=== PATIENT | female | born 1980 | race Caucasian/White ===

== ENCOUNTER 2016-06-28 18:36 | Emergency (ER) | payer OTHER ==
[2016-06-28 19:42] LABS: Hematocrit 40 % (35-47); Hemoglobin 13.3 g/dl (12.0-16.0); Mean Corpuscular HGB Conc 33 g/dl (31-36); Mean Corpuscular Hemoglobin 30 pg (27-31); Mean Corpuscular Volume 90 fL (80-97); Mean Platelet Volume 8 um3 (7.4-10.4); Red Blood Count 4.47 10^6/ul (4.0-5.4); Red Cell Distribution Width 13 % (10.5-15); White Blood Count 12.7 10^3/ul (3.5-10.8)
[2016-06-28 19:52] LABS: Urine Bacteria Absent (Absent); Urine Bilirubin Negative (Negative); Urine Glucose Negative (Negative); Urine Nitrite Negative (Negative)
[2016-06-28 20:01] LABS: ALT 10 U/L (7-52); AST 11 U/L (13-39); Albumin 3.8 g/dL (3.2-5.2); Alkaline Phosphatase 39 U/L (34-104); Anion Gap 5 mmol/L (2-11); BUN/Creatinine Ratio 18.1 (8-20); Blood Urea Nitrogen 15 mg/dL (6-24); CO2 Carbon Dioxide 26 mmol/L (22-32); Calcium 9.1 mg/dL (8.6-10.3); Chloride 107 mmol/L (101-111); EGFR African American 99.5 (>60); EGFR Non-African American 77.4 (>60); Globulin 2.9 g/dL (2-4); Glucose 94 mg/dL (70-100); Lipase 24 U/L (11.0-82.0); Magnesium 2.1 mg/dL (1.9-2.7); Potassium 3.6 mmol/L (3.5-5.0); Sodium 138 mmol/L (133-145); Total Protein 6.7 g/dL (6.4-8.9)
[2016-06-28] MEDS ORDERED: NS 0.9% 1000 ML* 1,000 ML IV ONE (20:07)
[2016-06-28] MEDS ORDERED: Ketorolac INJ* 30 MG/ML 1 ML VIAL IV PUSH ONE (20:07)
--- NOTE | 2016-06-28 20:18 | ED ---
Oscar Santos Michael, scribed for Josie De La Rosa MD on 06/28/16 at 1916 . Abdominal Pain/Female - HPI Summary HPI Summary: 36 y/o female comes to the ED presenting with intermittent episodes of sharp LLQ abd pain that started a week and a half ago. The pt reports that nothing aggravates or alleviates the abd pain. She also c/o nausea, fatigue, chills, sinus congestion, and bilateral breast tenderness. The breast tenderness is aggravated with movement. The pt denies dysuria, hematuria, vomiting, fever, rashes, and nipple discharge. No vaginal d/c, odor. No obrien, vision changes. no h /o similar. Pt has taken tylenol wiht some improvement- last dose yesterday. no analgesia today. Her LNMP started on 06/09/16 and stopped on 06/12/16. The PMHx is significant for DVT and insignificant for ovarian cysts. She smokes one pack of cigarettes per day and drinks alcohol once per month. - History of Current Complaint Chief Complaint: EDAbdPain Stated Complaint: ABD & BREAST PAIN/GEN ILLNESS Time Seen by Provider: 06/28/16 19:13 Hx Obtained From: Patient, Medical Records Hx Last Menstrual Period: 09/28/15 Onset/Duration: Gradual Onset, Lasting Weeks, Still Present Timing: Intermittent Episode Lasting Severity Initially: Moderate Severity Currently: Moderate Pain Intensity: 3 Pain Scale Used: 0-10 Numeric Location: Diffuse Aggravating Factor(s): Nothing Alleviating Factor(s): Nothing Associated Signs and Symptoms: Positive: Negative - dysuria, hematuria, vomiting , fever, rashes, and nipple discharge, Nausea, Other: - abd pain, fatigue, chills, sinus congestion, and breast tenderness Allergies/Adverse Reactions: Allergies Allergy/AdvReac Type Severity Reaction Status Date / Time No Known Allergies Allergy Verified 06/28/16 18:56 PMH/Surg Hx/FS Hx/Imm Hx Previously Healthy: Yes Endocrine/Hematology History: Reports: Other Endocrine/Hematological Disorders - protein C def Denies: Hx Anticoagulant Therapy Cardiovascular History: Reports: Hx Deep Vein Thrombosis - Rt popliteal space Musculoskeletal History: Reports: Other Musculoskeletal History - Rt calf tear in 2013 Neurological History: Denies: Hx Peripheral Neuropathy, Hx Spinal Cord Injury - Surgical History Surgery Procedure, Year, and Place: tubal ligation january 2009 Infectious Disease History: No Infectious Disease History: Denies: History Other Infectious Disease, Traveled Outside the [place] in Last 30 Days - Family History Known Family History: Positive: Other - migraines - Social History Occupation: Employed Full-time Lives: With Family Alcohol Use: Occasionally Substance Use Type: Reports: None Hx Tobacco Use: Yes Smoking Status (MU): Heavy Every Day Tobacco Smoker Type: Cigarettes Amount Used/How Often: half pack per day Review of Systems Positive: Chills, Fatigue. Negative: Fever Eyes: Negative ENT: Negative Positive: Other - sinus congestion Cardiovascular: Negative Respiratory: Negative Positive: Abdominal Pain, Nausea. Negative: Vomiting Genitourinary: Negative Negative: burning, hematuria Positive: Other - breast tenderness Negative: Rash Neurological: Negative Negative: Weakness, Numbness Psychological: Normal All Other Systems Reviewed And Are Negative: Yes Physical Exam Triage Information Reviewed: Yes Vital Signs On Initial Exam: Initial Vitals Temp Pulse Resp BP Pulse Ox 98.5 F 78 15 127/70 100 06/28/16 18:52 06/28/16 18:52 06/28/16 18:52 06/28/16 18:52 06/28/16 18:52 Vital Signs Reviewed: Yes Appearance: Positive: Well-Appearing, No Pain Distress, Well-Nourished Skin: Positive: Warm, Skin Color Reflects Adequate Perfusion, Dry Eyes: Positive: Normal, EOMI ENT: Positive: Normal ENT inspection Neck: Positive: Supple, Nontender Respiratory/Lung Sounds: Positive: Clear to Auscultation, Breath Sounds Present Cardiovascular: Positive: Normal, RRR. Negative: Murmur Abdomen Description: Positive: No Organomegaly, Soft. Negative: Nontender - mild discomfort LUQ, LLQ no guarding, no rebound +BS soft Diagnostics - Vital Signs Vital Signs Temp Pulse Resp BP Pulse Ox 06/28/16 18:52 98.5 F 78 15 127/70 100 - Laboratory Lab Results: Lab Results 06/28/16 06/28/16 06/28/16 Range/Units 19:30 19:31 19:31 WBC 12.7 H (3.5-10.8) 10^3/ul RBC 4.47 (4.0-5.4) 10^6/ul Hgb 13.3 (12.0-16.0) g/dl Hct 40 (35-47) % MCV 90 (80-97) fL MCH 30 (27-31) pg MCHC 33 (31-36) g/dl RDW 13 (10.5-15) % Plt Count 270 (150-450) 10^3/ul MPV 8 (7.4-10.4) um3 Neut % (Auto) 61.2 (38-83) % Lymph % (Auto) 29.8 (25-47) % [place] % (Auto) 6.5 (1-9) % Eos % (Auto) 1.0 (0-6) % Baso % (Auto) 1.5 (0-2) % Absolute Neuts (auto) 7.8 H (1.5-7.7) 10^3/ul Absolute Lymphs (auto) 3.8 (1.0-4.8) 10^3/ul Absolute Monos (auto) 0.8 (0-0.8) 10^3/ul Absolute Eos (auto) 0.1 (0-0.6) 10^3/ul Absolute Basos (auto) 0.2 (0-0.2) 10^3/ul Absolute Nucleated RBC 0 10^3/ul Nucleated RBC % 0 Sodium 138 (133-145) mmol/L Potassium 3.6 (3.5-5.0) mmol/L Chloride 107 (101-111) mmol/L Carbon Dioxide 26 (22-32) mmol/L Anion Gap 5 (2-11) mmol/L BUN 15 (6-24) mg/dL Creatinine 0.83 (0.51-0.95) mg/dL Est GFR ( Amer) 99.5 (>60) Est GFR (Non-Af Amer) 77.4 (>60) BUN/Creatinine Ratio 18.1 (8-20) Glucose 94 (70-100) mg/dL Calcium 9.1 (8.6-10.3) mg/dL Magnesium 2.1 (1.9-2.7) mg/dL Total Bilirubin 0.30 (0.2-1.0) mg/dL AST 11 L (13-39) U/L ALT 10 (7-52) U/L Alkaline Phosphatase 39 (34-104) U/L Total Protein 6.7 (6.4-8.9) g/dL Albumin 3.8 (3.2-5.2) g/dL Globulin 2.9 (2-4) g/dL Albumin/Globulin Ratio 1.3 (1-3) Lipase 24 (11.0-82.0) U/L Beta HCG, Quant < 0.60 mIU/mL Urine Color Yellow Urine Appearance Cloudy Urine pH 6.0 (5-9) Ur Specific [place] 1.019 (1.010-1.030) Urine Protein Negative (Negative) Urine Ketones Negative (Negative) Urine Blood 2+ H (Negative) Urine Nitrate Negative (Negative) Urine Bilirubin Negative (Negative) Urine Urobilinogen Negative (Negative) Ur Leukocyte Esterase Negative (Negative) Urine WBC (Auto) Absent (Absent) Urine RBC (Auto) 2+(6-10/hpf) H (Absent) Ur Squamous Epith Cells Present H (Absent) Urine Bacteria Absent (Absent) Urine Glucose Negative (Negative) Result Diagrams: 06/28/16 19:31 06/28/16 19:31 Lab Statement: Any lab studies that have been ordered have been reviewed, and results considered in the medical decision making process. - CT CT ABD CT Interpretation: No Acute Changes CT Interpretation Completed By: Radiologist Abdominal Pain Fem Course/Dx - Diagnoses Provider Diagnoses: Abdominal pain Discharge - Discharge Plan Condition: Stable Disposition: HOME Patient Education Materials: Abdominal Pain (ED), Musculoskeletal Pain (ED) Referrals: Edgardo Stoner MD [Primary Care Provider] - [facility] [Outside] Additional Instructions: - Stay well hydrated. Drink plenty of non-alcoholic, non-caffinated beverages - Eat and drink regular, healthy meals -Work to decrease decreased cigarette smoking - Get plenty of restful sleep -Contact your automobile wrecker doctor to schedule a follow-up appointment. contact the physician referral line to establish with a new primary care doctor. Contact your doctor or return with questions or concerns The documentation as recorded by the Oscar jiménez Michael accurately reflects the service I personally performed and the decisions made by me, Josie De La Rosa MD.
--- NOTE | 2016-06-28 20:49 | RAD ---
INDICATION: Flank pain and hematuria COMPARISON: May 28, 2015 TECHNIQUE: Noncontrast axial source images were acquired from the level hemidiaphragms to the symphysis pubis as part of CT imaging for renal stone. Lung bases: The lung bases are clear. Liver: The liver is normal in size. Noncontrast imaging shows no evidence of a hepatic mass or ductal dilatation. Gallbladder: There are no calcified gallstones. There is no evidence of wall thickening or pericholecystic fluid.. Spleen: The spleen is normal in size. The noncontrast CT appearance is normal. Pancreas: Noncontrast imaging shows no pancreatic mass or ductal dilitation. Adrenal glands: No masses are identified. Kidneys/Bladder: There is no evidence of nephrolithiasis or CT evidence of hydronephrosis. Noncontrast imaging shows no evidence of a renal mass. The bladder is unremarkable.. Adenopathy: There is no evidence of intraperitoneal or retroperitoneal adenopathy. Evaluation is limited without oral contrast. Fluid collections: There are no free or localized fluid collections. Vessels: The aorta and iliac vessels are normal in caliber. There are no significant atherosclerotic changes. The IVC appears normal Pelvic organs: The uterus and adnexa appear normal GI tract: Evaluation of the bowel is limited without oral contrast. The stomach, small bowel, and lower GI tract appear grossly normal. There are no obstructive findings. The appendix is visualized and appears normal. Soft tissues: No soft tissue abnormalities of the extraperitoneal abdomen or pelvis are identified. Osseous structures: There are no acute osseous findings. IMPRESSION: NO CT EVIDENCE OF UROLITHIASIS. NO MASS OR INFLAMMATORY CHANGE
[2016-06-28 22:05] VITALS: BP 115/55
== END 2016-06-28 22:04 | disposition home or self-care (01) ==
LOC: ED 18:36
DX: R10.32 Left lower quadrant pain (principal); N64.4 Mastodynia; R11.0 Nausea; R53.83 Other fatigue
CPT/HCPCS: 36415; 74176; 80053; 81003; 81015; 83690; 83735; 84702; 85025; 96374; 99282; J1885

== ENCOUNTER 2016-10-13 14:59 | Emergency (ER) | payer OTHER ==
[2016-10-13 15:20] VITALS: BP 115/73
[2016-10-13] MEDS ORDERED: Acetaminophen TAB* 325 MG PO ONE (16:38)
--- NOTE | 2016-10-13 17:08 | RAD ---
CLINICAL HISTORY: Left flank pain, hematuria COMPARISON: June 28, 2016 TECHNIQUE: Multiple contiguous axial CT scans were obtained of the abdomen and pelvis, without intravenous contrast enhancement. Coronal and sagittal multiplanar reformations are submitted for review. Oral contrast was not administered. FINDINGS: The study is limited by the lack of intravenous contrast. This limits evaluation of the solid organs and vasculature. LUNG BASES: The lung bases are clear. LIVER: The liver is normal in shape, size, contour, and attenuation. BILE DUCTS: There is no intrahepatic or extrahepatic biliary dilatation. GALLBLADDER: The gallbladder is normal, without pericholecystic inflammatory change. PANCREAS: The pancreas is normal, without mass or ductal dilatation. SPLEEN: Normal in size and appearance. UPPER GI TRACT: Evaluation of the gastrointestinal tract is limited by incomplete gastric distention. There is a questionable diverticulum of the proximal body of the stomach, best seen on axial image 30 SMALL BOWEL AND MESENTERY: The small bowel is normal in contour, course, and caliber. There is no obstruction or dilatation. COLON: The colon is normal in contour, course, caliber. There is no pericolonic inflammatory change. There is a tubular, vermiform, hollow viscus that is blind ending, and originates from the cecum, consistent with a normal appendix. There is no periappendiceal inflammatory change. ADRENALS: Normal bilaterally. 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 There is no appreciable hydronephrosis or nephrolithiasis BLADDER: The bladder is incompletely distended but is grossly normal. PELVIC ORGANS: There is a 3.6 cm simple fluid attenuation left ovarian cyst. There is a small amount of fluid within the pelvic cul-de-sac. What appears to be a tubal ligation clip is noted dependently within the pelvis. AORTA: The aorta is normal. IVC: Unremarkable LYMPH NODES: There is no lymphadenopathy by size criteria. ABDOMINAL WALL: There is no evidence for abdominal wall hernia. BONES AND SOFT TISSUES: Unremarkable OTHER: None IMPRESSION: 1. NO HYDRONEPHROSIS OR NEPHROLITHIASIS. 2. LEFT OVARIAN CYST WITH A SMALL AMOUNT OF FLUID WITHIN THE PELVIC CUL-DE-SAC. 3. WHAT APPEARS TO BE A TUBAL LIGATION CLIP IS NOTED DEPENDENTLY WITHIN THE PELVIS 4. QUESTIONABLE GASTRIC DIVERTICULUM
--- NOTE | 2016-10-13 17:53 | UC ---
iftikhar Santos Timothy, scribed for Marquita Mckeon MD on 10/13/16 at 1555 . Complaint Female HPI - HPI Summary HPI Summary: Alexa Skinner is a 36 yo female presenting to [facility] with dizziness, hot flashes with diaphoresis, and nausea since last night. She states she also has 5/10 sharp left lower back pain also since last night for which she is seeing Dr. Sandi Villalpando (Urology) 10/21/16. She states she also has some minor abd pain, and when she experienced her hot flashes felt weak in her legs. She denies any urinary pain, but has blood in her urine. She states she saw a urologist 4 years ago for blood in her urine which resulted in a work up showing one kidney smaller than the other, but both maintaining functionality. Her MHx includes DVT in the right popliteal space, renal failure @ 18 months that required dialysis but completely resolved, tubal ligation, protein C deficiency, and tobacco use. Her LNMP was 09/05/16. - History Of Current Complaint Chief Complaint: UCGeneralIllness Stated Complaint: DIZZINES,NAUSEA Time Seen by Provider: 10/13/16 15:41 Hx Obtained From: Patient Hx Last Menstrual Period: 09/05/16 ?: No Onset/Duration: Sudden Onset, Lasting Days, Still Present Timing: Constant Severity Initially: Moderate Severity Currently: Moderate Pain Intensity: 7 Pain Scale Used: 0-10 Numeric Character: Sharp Aggravating Factor(s): Nothing Alleviating Factor(s): Nothing Associated Signs And Symptoms: Positive: Fever - "hot flashes", Back Pain - left flank, Nausea - Allergies/Home Medications Allergies/Adverse Reactions: Allergies Allergy/AdvReac Type Severity Reaction Status Date / Time No Known Allergies Allergy Verified 10/13/16 15:10 PMH/Surg Hx/FS Hx/Imm Hx Cardiovascular History Of: Reports: Deep Vein Thrombosis - Rt popliteal space Other History Of: Negative For: Anticoagulant Therapy - Surgical History Surgical History: Yes Surgery Procedure, Year, and Place: tubal clamps january 2009 - Family History Known Family History: Positive: Diabetes - Father on dialysis secondary to DM, Other - migraines - Social History Occupation: Employed Full-time Alcohol Use: Occasionally Substance Use Type: None Smoking Status (MU): Heavy Every Day Tobacco Smoker Type: Cigarettes Amount Used/How Often: half pack per day Household Exposure Type: Cigarettes Review of Systems Constitutional: Fever - "hot flashes" with diaphoresis, weakness in her legs Skin: Negative Eyes: Negative ENT: Negative Respiratory: Negative Cardiovascular: Negative Gastrointestinal: Abdominal Pain, Other - nausea Genitourinary: Hematuria, Other - left flank pain Motor: Negative Neurovascular: Negative Musculoskeletal: Negative Neurological: Other - dizziness Psychological: Negative All Other Systems Reviewed And Are Negative: Yes Physical Exam Triage Information Reviewed: Yes Appearance: Well-Appearing, Well-Nourished, Pain Distress Vital Signs: Initial Vital Signs Temp 98.9 F 10/13/16 15:12 Pulse 81 10/13/16 15:12 Resp 18 10/13/16 15:12 BP 115/73 10/13/16 15:12 Pulse Ox 99 10/13/16 15:12 Vital Signs Reviewed: Yes Eyes: Positive: Conjunctiva Clear. Negative: Discharge ENT: Positive: Hearing grossly normal. Negative: Muffled/hoarse voice Neck: Positive: Supple, Nontender Respiratory: Positive: Lungs clear, Normal breath sounds, No respiratory distress Cardiovascular: Positive: RRR, No Murmur, Pulses Normal, Brisk Capillary Refill Abdomen Description: Positive: No Organomegaly, Soft, CVA Tenderness (L). Negative: Nontender - mild diffuse, Bruit, CVA Tenderness (R), Distended, Guarding, Hepatomegaly, McBurney's Point Tenderness, Pulsatile Mass, Splenomegaly Bowel Sounds: Positive: Present Musculoskeletal: Positive: Strength Intact, ROM Intact Neurological: Positive: Alert, Muscle Tone Normal Psychological Exam: Normal Psychological: Positive: Age Appropriate Behavior Skin Exam: Normal Skin: Negative: rashes Diagnostics - Radiology CT A/P Xray Interpretation: No Acute Changes - IMPRESSION: 1. NO HYDRONEPHROSIS OR NEPHROLITHIASIS. 2. LEFT OVARIAN CYST WITH A SMALL AMOUNT OF FLUID WITHIN THE PELVIC CUL-DE-SAC. 3. WHAT APPEARS TO BE A TUBAL LIGATION CLIP IS NOTED DEPENDENTLY WITHIN THE PELVIS 4. QUESTIONABLE GASTRIC DIVERTICULUM Radiology Interpretation Completed By: Radiologist Re-Evaluation - Re-Evaluation First Eval Re-Evaluation Time: 17:15 Change: Unchanged Comment: Pt is informed of attempts to reach Dr. Villalpando, and is agreeable to current course of Tx and pain management. Second Eval Re-Evaluation Time: 17:28 Change: Unchanged Comment: Discussed imaging results with Pt. Complaint Female Dx - Course Course Of Treatment: Alexa Skinner is a 36 yo female presenting to [facility] with 7/ 10 left flank pain, nausea, and dizziness with weakness in her legs bilaterally since 10/12/16 pm. Discussed pain management options with Pt, recommended acetaminophin due to risk of decreased kidney function associated with toradol administration. Pt received acetaminophin in [facility] for pain management. Her UA r/ o , and showed 2+ blood. Note that 06/28/16 her BUN was 15, her Creatinine was .083, and her GFR was 77.4. Her CT A/P suggested left ovarian cyst (see documentation). CT does not account for her left flank pain, and the small kidney is on the right on CT. After clinical examination and review of her lab and imaging studies, she will be discharged home with left flank pain, hematuria, Hx small kidney with appropriate instructions. UA results. Color: yellow. Clarity: clear. pH: 5.5. Specif Gracity: 1.010. Protein: negative. Glyucose: negative. Blood: 2+. Ketones: negative. Nitrite: negative. Bilirubin: negative. Urobilinogen: negative. Luekocyte esteras: negative. : negative - Differential Dx/Diagnosis Differential Diagnosis/HQI/PQRI: Ovarian Cyst, Renal Colic, Ureteral Stone, Urinary Tract Infection, Other - renal vein thrombosis or renal art embolus Provider Diagnoses: left flank pain, hematuria, Hx of right hypoplastic kidney, left ovarian cyst, tobacco abuse disorder - Physician Notifications Discussed Patient Care With: [id number] - [place] (boiler or engine operator @ [facility] [phone]) - will be transferred to provider vacuum cleaner repair person. Confirmed Pt appointment at [phone] Villalpando. [id number] - ([facility] [phone]) - attempted consult with provider vacuum cleaner repair person, was told we will be contacted by him when he returns from the OR. Provider vacuum cleaner repair person name is Dr. Hill. [id number] - Dr. Hill (OR at [facility] - [phone]) - provider vacuum cleaner repair person, attempted to page. Provider will return call as soon as he is able. Discharge - Discharge Plan Condition: Stable Disposition: HOME Prescriptions: HYDROcodone/ACETAMIN 5-325 MG* [[place] 5-325 TAB*] 1 tab PO Q4H PRN #12 tab MDD 6 PRN Reason: Pain Patient Education Materials: Hematuria (ED), Flank Pain (ED) Forms: *Work Release Referrals: Jes Hernandez MD [Primary Care Provider] - 2 Days Additional Instructions: Please keep your appointment with Dr. Villalpando at [place]. Dr. Mckeon advises that you stop taking naproxen or ibuprofen due to these medications' effect on kidneys. Please follow up with a primary care physician regarding your visit to urgent care today. Present to the EMERGENCY DEPARTMENT with any new or recurring symptoms. The documentation as recorded by the iftikhar jiménez Timothy accurately reflects the service I personally performed and the decisions made by , Marquita Mckeon MD.
== END 2016-10-13 17:45 | disposition home or self-care (01) ==
LOC: UCEAST 14:59
DX: R10.9 Unspecified abdominal pain (principal); R31.9 Hematuria, unspecified; N83.202 Unspecified ovarian cyst, left side; Z86.718 Personal history of other venous thrombosis and embolism; F17.210 Nicotine dependence, cigarettes, uncomplicated
CPT/HCPCS: 74176; 81003; 84702; 99212; A9270-GY; G0463

== ENCOUNTER 2016-12-19 20:08 | Emergency (ER) | payer OTHER ==
[2016-12-19] MEDS ORDERED: diPHENhydraMINE IV* 50 MG/ML 1 ml VIAL (BENADRYL) IV ONE (22:25)
[2016-12-19] MEDS ORDERED: NS 0.9% 1000 ML* 1,000 ML IV ONE (22:25)
[2016-12-19] MEDS ORDERED: Ketorolac INJ* 30 MG/ML 1 ML VIAL IV PUSH ONE (22:26)
[2016-12-19] MEDS ORDERED: PROCHLORPERAZINE INJ 5 MG/ML 2 ML VIAL IV ONE (22:26)
--- NOTE | 2016-12-19 22:30 | ED ---
Headache - HPI Summary HPI Summary: Patient presents with KOWALSKI x 4 days which has been intermittent, 8/10, in the frontal lobe and ophthalmic area radiating to the occipital area with pain extending down the right side of the neck. +photophobia, +phonophobia, + nausea. Mother and sister both dx with migraines. Patient has never been diagnosed and has never had a KOWALSKI like this before. Not worst of life. Denies visual disturbances, or other neurological symptoms. Denies weakness or dizziness. Pain is worse at night and better during the day. Ibuprofen improves symptoms slightly. PMHx non-contributory. Patient states she has had some muscular neck pain which has been present for several days. Denies tearing , rhinorrhea or excess stress. KOWALSKI not worse or better with alcohol use or environmental exposures. - History Of Current Complaint Chief Complaint: EDHeadache Stated Complaint: HEADACHE TIMES 6 DAY Time Seen by Provider: 12/19/16 22:15 Hx Obtained From: Patient Hx Last Menstrual Period: 09/05/16 Onset/Duration: Started days ago Initially Headache Was: Initial Pain Scale(0-10)= - 8 Timing: Constant, Minutes Character: Throbbing, Pressure Location of Headache: Frontal, Temporal, Parietal, Occipital Aggravating Factor: Bright Lights Allevating Factors: Rest Associated Signs And Symptoms: Nausea - Risk Factors SAH Risk Factors: Negative Meningitis Risk Factors: Negative SDH Risk Factors: Negative Temporal Arteritis Risk Factors: Female, - Allergies/Home Medications Allergies/Adverse Reactions: Allergies Allergy/AdvReac Type Severity Reaction Status Date / Time No Known Allergies Allergy Verified 10/13/16 15:10 PMH/Surg Hx/FS Hx/Imm Hx Previously Healthy: Yes Endocrine/Hematology History: Reports: Other Endocrine/Hematological Disorders - protein C def Denies: Hx Anticoagulant Therapy Cardiovascular History: Reports: Hx Deep Vein Thrombosis - Rt popliteal space Musculoskeletal History: Reports: Other Musculoskeletal History - Rt calf tear in 2013 Neurological History: Denies: Hx Peripheral Neuropathy, Hx Spinal Cord Injury - Surgical History Surgery Procedure, Year, and Place: tubal clamps january 2009 - Immunization History Hx Pertussis Vaccination: Yes Immunizations Up to Date: Unable to Obtain/Confirm Infectious Disease History: Denies: History Other Infectious Disease, Traveled Outside the [place] in Last 30 Days - Family History Known Family History: Positive: Unknown, Diabetes - Father on dialysis secondary to DM, Other - migraines - Social History Occupation: Employed Full-time Lives: With Family Alcohol Use: Occasionally Hx Substance Use: No Substance Use Type: Reports: None Hx Tobacco Use: Yes Smoking Status (MU): Heavy Every Day Tobacco Smoker Type: Cigarettes Amount Used/How Often: half pack per day Review of Systems Constitutional: Negative Positive: Photophobia ENT: Negative Cardiovascular: Negative Gastrointestinal: Negative Genitourinary: Negative Positive: no symptoms reported, see HPI Positive: Headache Psychological: Normal All Other Systems Reviewed And Are Negative: Yes Physical Exam Triage Information Reviewed: Yes Vital Signs On Initial Exam: Initial Vitals Temp Pulse Resp BP Pulse Ox 97 F 59 18 142/80 100 12/19/16 20:10 12/19/16 20:10 12/19/16 20:10 12/19/16 20:10 12/19/16 20:10 Vital Signs Reviewed: Yes Appearance: Positive: Well-Appearing, No Pain Distress, Well-Nourished Skin: Positive: Warm, Skin Color Reflects Adequate Perfusion Head/Face: Positive: Normal Head/Face Inspection Eyes: Positive: EOMI, SHERRI, Conjunctiva Clear ENT: Positive: Pharynx normal, TMs normal Neck: Positive: Supple, No Lymphadenopathy Respiratory/Lung Sounds: Positive: Clear to Auscultation, Breath Sounds Present Cardiovascular: Positive: Normal, RRR, Pulses are Symmetrical in both Upper and Lower Extremities Musculoskeletal: Positive: Normal, Strength/ROM Intact Neurological: Positive: Normal, Sensory/Motor Intact, Alert, Oriented to Person Place, Time, CN Intact II-III, Reflexes Intact, Normal Gait, Facial Symmetry, Speech Normal Psychiatric: Positive: Normal, Affect/Mood Appropriate AVPU Assessment: Alert - [place] Coma Scale Best Eye Response: 4 - Spontaneous Best Motor Response: 6 - Obeys Commands Best Verbal Response: 5 - Oriented Diagnostics - Vital Signs Vital Signs Temp Pulse Resp BP Pulse Ox 12/19/16 21:58 97.6 F 59 20 135/75 100 12/19/16 20:10 97 F 59 18 142/80 100 - Laboratory Lab Statement: Any lab studies that have been ordered have been reviewed, and results considered in the medical decision making process. Headache Course/Dx - Course Course Of Treatment: Patient given 1L fluids, compazine, toradol and benadryl. New onset KOWALSKI with family hx of migraines. Patient endorses 8/10 pain, not worst of life, no neuro or visual disturbances. +nausea, +phonophobia, + phonophobia. KOWALSKI improved with medications. Will start on Sumatriptan and return precautions given. Will refer to neuro and encourage follow up with PCP for possible new onset migraines. Treatment options explained to patient and elected d/t improvement of symptoms and symptoms related to typical migraine KOWALSKI , will defer CT brain at this time. Patient agrees and is OK for discharge. - Diagnoses Differential Diagnosis/HQI/PQRI: Epidural Hematoma, Subdural Hematoma, Migraine , Sinus Headache, Tension Headache Provider Diagnoses: Migraine Is Visit Related: No Discharge - Discharge Plan Condition: Stable Disposition: HOME Prescriptions: Prochlorperazine TAB* [Compazine Tab*] 10 mg PO Q6H PRN #20 tab PRN Reason: Nausea SUMAtriptan TAB* [Imitrex TAB*] 25 mg PO SEE INSTRUCTIONS #30 tab MDD 4 Patient Education Materials: Migraine Headache (ED) Referrals: Jes Hernandez MD [Primary Care Provider] - Additional Instructions: Follow up with PCP for further evaluation of headaches Take Compazine 10mg up to four times daily for nausea
[2016-12-20 01:29] VITALS: BP 123/75
== END 2016-12-20 00:40 | disposition home or self-care (01) ==
LOC: ED 20:08
DX: G43.909 Migraine, unspecified, not intractable, without status migrainosus (principal); R11.0 Nausea; Z86.718 Personal history of other venous thrombosis and embolism; F17.210 Nicotine dependence, cigarettes, uncomplicated
CPT/HCPCS: 96361; 96374; 96375; 99283; J0780; J1200; J1885

== ENCOUNTER 2016-12-31 16:56 | Emergency (ER) | payer OTHER ==
[2016-12-31 18:50] LABS: Hematocrit 40 % (35-47); Hemoglobin 13.2 g/dl (12.0-16.0); Mean Corpuscular HGB Conc 33 g/dl (31-36); Mean Corpuscular Hemoglobin 30 pg (27-31); Mean Corpuscular Volume 92 fL (80-97); Mean Platelet Volume 8 um3 (7.4-10.4); Red Cell Distribution Width 13 % (10.5-15); White Blood Count 10.3 10^3/ul (3.5-10.8)
--- NOTE | 2016-12-31 18:52 | ED ---
Skin Complaint - HPI Summary HPI Summary: 36F presents with right leg rash. She states she recently returned from [place]. The rash been presents since Thursday and has been getting worst. She has history of a chronic blood clot in her right leg behind the knee that she has been on blood thinners for but her primary took her off because flow is still getting around it. She states the area has swollen up more. She states that the area nicholas and is not itchy. She denies any fever. She denies any spreading redness. She has notice blister like appearance starting today of the lesions. She denies any outdoor exposure. She states she has been at the beach. She has never had the rash before. She has protein c deficiency. - History of Current Complaint Chief Complaint: EDExtremityLower Time Seen by Provider: 12/31/16 17:35 Stated Complaint: RASH ON FOOT Hx Last Menstrual Period: 09/05/16 Pain Intensity: 6 - Allergy/Home Medications Allergies/Adverse Reactions: Allergies Allergy/AdvReac Type Severity Reaction Status Date / Time No Known Allergies Allergy Verified 10/13/16 15:10 PMH/Surg Hx/FS Hx/Imm Hx Endocrine/Hematology History: Reports: Other Endocrine/Hematological Disorders - protein C def Denies: Hx Anticoagulant Therapy Cardiovascular History: Reports: Hx Deep Vein Thrombosis - Rt popliteal space Musculoskeletal History: Reports: Other Musculoskeletal History - Rt calf tear in 2013 Neurological History: Denies: Hx Peripheral Neuropathy, Hx Spinal Cord Injury - Surgical History Surgery Procedure, Year, and Place: tubal clamps january 2009 Infectious Disease History: No Infectious Disease History: Denies: History Other Infectious Disease, Traveled Outside the [place] in Last 30 Days - Family History Known Family History: Positive: Unknown, Diabetes - Father on dialysis secondary to DM, Other - migraines - Social History Alcohol Use: Occasionally Hx Substance Use: No Substance Use Type: Reports: None Hx Tobacco Use: Yes Smoking Status (MU): Heavy Every Day Tobacco Smoker Type: Cigarettes Amount Used/How Often: half pack per day Review of Systems Negative: Fever Negative: Chest Pain Negative: Shortness Of Breath Positive: Rash All Other Systems Reviewed And Are Negative: Yes Physical Exam Vital Signs On Initial Exam: Initial Vitals Temp Pulse Resp BP Pulse Ox 98.9 F 92 18 140/95 98 12/31/16 17:08 12/31/16 17:08 12/31/16 17:08 12/31/16 17:08 12/31/16 17:08 Skin: Positive: Other - erythematous patches with blisterlike lesions in the center on the back of right leg and shoe of foot, no warmth or streaking surrounding Head/Face: Positive: Normal Head/Face Inspection Eyes: Positive: Normal, Conjunctiva Clear Respiratory/Lung Sounds: Positive: Clear to Auscultation, Breath Sounds Present Cardiovascular: Positive: Normal, RRR Musculoskeletal: Positive: Edema Right - leg, Other - good pulses, capillary refill<2 secs, tender to rash area. Negative: Martinez Sign Right - posti Diagnostics - Vital Signs Vital Signs Temp Pulse Resp BP Pulse Ox 12/31/16 17:17 98.9 F 92 18 140/95 98 12/31/16 17:08 98.9 F 92 18 140/95 98 - Laboratory Result Diagrams: 12/31/16 18:38 12/31/16 18:38 Lab Statement: Any lab studies that have been ordered have been reviewed, and results considered in the medical decision making process. - Ultrasound No standard instances Ultrasound Interpretation: Positive (See Comments) - IMPRESSION: 1. STABLE CHRONIC NONOCCLUSIVE THROMBUS OF THE RIGHT POPLITEAL VEIN. 2. MINIMALLY ENLARGED , RIGHT INGUINAL LYMPH NODES Ultrasound Interpretation Completed By: Radiologist Course/Dx - Course Course Of Treatment: 36F presents with right leg rash. She states she recently returned from [place]. The rash has been presents since Thursday and has been getting worst. She has history of a chronic blood clot in her right leg behind the knee that she has been on blood thinners for but her primary took her off because flow is still getting around it. She states the area has swollen up more. She states that the area nicholas and is not itchy. She denies any fever. She denies any spreading redness. She has notice blister like appearance starting today of the lesions. She denies any outdoor exposure. She states she has been at the beach. on exam she has erythematous patch with blister like lesions present, could be contact dermatitis vs shingles. does not follow a dermatome exactly but no new products or enviromental exposure so will treat as shingles to be on safe side. got u/s of leg to make sure no new clot which is not. will have follow up with primary for treatment of chronic DVT. patient understands and agrees with plan - Differential Diagnoses - Skin Complaint Differential Diagnoses: Contact Dermatitis, Varicella Zoster, Other - dvt - Diagnoses Provider Diagnoses: Rash, Chronic deep vein thrombosis (DVT) Discharge - Discharge Plan Condition: Good Disposition: HOME Prescriptions: ValACYclovir (*) [Valtrex 1 GM(*)] 1 gm PO TID #21 tab Patient Education Materials: Shingles (ED) Referrals: Jes Hernandez MD [Primary Care Provider] - Additional Instructions: Follow up with primary about continued care for blood clot Take antiviral three times a day for 7 days for possible shingles rash Place hydrocortisone on area twice a day for any itching Return to ED if develop any new or worsening symptoms
--- NOTE | 2016-12-31 18:52 | RAD ---
HISTORY: Right calf swelling, history of DVT COMPARISONS: October 18, 2015 TECHNIQUE: Multiple transverse and longitudinal ultrasound images were obtained of the right lower extremity from the level of the common femoral vein inferiorly through to the infrapopliteal veins using grayscale, color Doppler, and spectral Doppler imaging with and without compression and with augmentation. Comparison images were obtained of the contralateral common femoral vein. FINDINGS: VEINS: Again noted is linear echogenic material consistent with nonocclusive chronic thrombus of the popliteal vein similar to the previous examination. The remainder of the venous system of the right lower extremity is compressible throughout its course, with normal flow on color Doppler imaging and normal response to augmentation on spectral Doppler imaging. SOFT TISSUES: There are reniform hypoechoic lymph nodes of the right inguinal region. The largest measures 1.2 cm in short axis. OTHER FINDINGS: None. IMPRESSION: 1. STABLE CHRONIC NONOCCLUSIVE THROMBUS OF THE RIGHT POPLITEAL VEIN. 2. MINIMALLY ENLARGED, RIGHT INGUINAL LYMPH NODES
[2016-12-31 19:07] LABS: Albumin 3.7 g/dL (3.2-5.2); BUN/Creatinine Ratio 11.2 (8-20); Calcium 9.2 mg/dL (8.6-10.3); EGFR African American 91.8 (>60); EGFR Non-African American 71.4 (>60); Total Bilirubin 0.3 mg/dL (0.2-1.0); Total Protein 6.7 g/dL (6.4-8.9)
[2016-12-31 19:15] VITALS: BP 119/69
[2016-12-31 20:19] LABS: Potassium 4.1 mmol/L (3.5-5.0)
== END 2016-12-31 19:14 | disposition home or self-care (01) ==
LOC: ED 16:56
DX: R21 Rash and other nonspecific skin eruption (principal); I82.531 Chronic embolism and thrombosis of right popliteal vein; D68.59 Other primary thrombophilia; R59.9 Enlarged lymph nodes, unspecified; F17.210 Nicotine dependence, cigarettes, uncomplicated
CPT/HCPCS: 36415; 80053; 85025; 85610; 99282

== ENCOUNTER 2017-03-15 02:07 | Emergency (ER) | payer OTHER ==
[2017-03-15] MEDS ORDERED: HYDROcodone/ACETAMIN 5-325 MG* 1 TAB PO ONE (06:12)
[2017-03-15 07:15] LABS: Hematocrit 40 % (35-47); Hemoglobin 13.6 g/dl (12.0-16.0); Mean Corpuscular HGB Conc 34 g/dl (31-36); Mean Corpuscular Hemoglobin 31 pg (27-31); Mean Corpuscular Volume 90 fL (80-97); Mean Platelet Volume 7 um3 (7.4-10.4); Red Blood Count 4.44 10^6/ul (4.0-5.4); Red Cell Distribution Width 14 % (10.5-15); White Blood Count 7.5 10^3/ul (3.5-10.8)
[2017-03-15 07:26] LABS: ALT 10 U/L (7-52); AST 12 U/L (13-39); Albumin 3.7 g/dL (3.2-5.2); Alkaline Phosphatase 52 U/L (34-104); Anion Gap 5 mmol/L (2-11); BUN/Creatinine Ratio 11.8 (8-20); Blood Urea Nitrogen 10 mg/dL (6-24); C Reactive Protein 1.48 mg/L (< 5.00); CO2 Carbon Dioxide 24 mmol/L (22-32); Calcium 8.6 mg/dL (8.6-10.3); Chloride 109 mmol/L (101-111); EGFR African American 96.8 (>60); EGFR Non-African American 75.3 (>60); Globulin 3.1 g/dL (2-4); Glucose 74 mg/dL (70-100); Potassium 4.2 mmol/L (3.5-5.0); Sodium 138 mmol/L (133-145); Total Protein 6.8 g/dL (6.4-8.9)
--- NOTE | 2017-03-15 08:25 | RAD ---
HISTORY: Left knee pain COMPARISONS: None VIEWS: 6, Frontal, lateral, axial, and oblique views of the left knee FINDINGS: BONE DENSITY: Normal. BONES: There is no displaced fracture. JOINTS: There is no arthropathy. There is no suprapatellar joint effusion or lipohemarthrosis. ALIGNMENT: There is no dislocation. SOFT TISSUES: Unremarkable. OTHER FINDINGS: None. IMPRESSION: NO ACUTE OSSEOUS INJURY. IF SYMPTOMS PERSIST, RECOMMEND REPEAT IMAGING.
--- NOTE | 2017-03-15 08:27 | RAD ---
HISTORY: Left lower extremity pain COMPARISONS: None relevant TECHNIQUE: Multiple transverse and longitudinal ultrasound images were obtained of the left lower extremity from the level of the common femoral vein inferiorly through to the infrapopliteal veins using grayscale, color Doppler, and spectral Doppler imaging with and without compression and with augmentation. Comparison images were obtained of the contralateral common femoral vein. FINDINGS: VEINS: The venous system of the left lower extremity is compressible throughout its course, with normal flow on color Doppler imaging and normal response to augmentation on spectral Doppler imaging. SOFT TISSUES: Unremarkable. OTHER FINDINGS: None. IMPRESSION: NO LEFT LOWER EXTREMITY DEEP VEIN THROMBOSIS
[2017-03-15 08:52] VITALS: BP 117/67
--- NOTE | 2017-03-15 10:23 | ED ---
Nadira Santos Thomas, scribed for Marquita Mckeon MD on 03/15/17 at 0919 . Lower Extremity - HPI Summary HPI Summary: The pt is a 36 y/o M presenting to the ED c/o L knee pain that began two months ago but suddenly worsened significantly this AM at 01:30 when she alon from the toilet. The pain is located on her lateral left knee and it radiates up the middle of her thigh. The pt rates the pain 4/10. The pain is aggravated by movement and alleviated by nothing. She says that she currently has a DVT in her right leg. This was confirmed with ultrasound on 12/31/16. She was on anticoagulants earlier but she is no longer on them because she was told she did not need them. Pt has protein C deficiency. She knows how to do Lovenox injections and has been on warfarin in the past. She is frequently mobile in her employment. The patient has treated the pain with Tylenol BLADDER TRIMMER. Pt additionally c/o intermittent calf pain in her left leg, rhinorrhea, and sore throat. Pt denies calf tenderness, ankle pain, hip pain, CP, SOB, and fever. - History of Current Complaint Chief Complaint: EDExtremityLower Stated Complaint: LT KNEE PAIN Time Seen by Provider: 03/15/17 05:55 Hx Obtained From: Patient, Family/Web Production Manager - significant other in the room Mechanism Of Injury: Other - onset of pain when alon from toilet Onset of Pain: Immediate Onset/Duration: Hours - onset of pain today at 01:30 Severity Initially: Moderate Severity Currently: Moderate Pain Intensity: 4 Pain Scale Used: 0-10 Numeric Timing: Constant Location: Is Discrete @ - left lateral knee Character Of Pain: Aching Associated Signs And Symptoms: Positive: Other - Intermittent calf pain in her left leg, rhinorrhea, and sore throat. NEGATIVE: calf tenderness, ankle pain, hip pain, CP, SOB, and fever. Aggravating Factor(s): Movement Alleviating Factor(s): Nothing Able to Bear Weight: Yes - Risk Factors DVT Risk Factors: Prior DVT - Allergies/Home Medications Allergies/Adverse Reactions: Allergies Allergy/AdvReac Type Severity Reaction Status Date / Time No Known Allergies Allergy Verified 03/15/17 06:38 PMH/Surg Hx/FS Hx/Imm Hx Previously Healthy: No Endocrine/Hematology History: Reports: Other Endocrine/Hematological Disorders - protein C def Denies: Hx Anticoagulant Therapy Cardiovascular History: Reports: Hx Deep Vein Thrombosis Musculoskeletal History: Reports: Other Musculoskeletal History - Rt calf tear in 2013 Neurological History: Denies: Hx Peripheral Neuropathy, Hx Spinal Cord Injury - Surgical History Surgery Procedure, Year, and Place: tubal clamps january 2009 Infectious Disease History: No Infectious Disease History: Denies: History Other Infectious Disease, Traveled Outside the [place] in Last 30 Days - Family History Known Family History: Positive: Diabetes - Father on dialysis secondary to DM, Other - migraines - Social History Lives: With Family Alcohol Use: Occasionally Hx Substance Use: No Substance Use Type: Reports: None Hx Tobacco Use: Yes Smoking Status (MU): Heavy Every Day Tobacco Smoker Type: Cigarettes Amount Used/How Often: half pack per day Review of Systems Negative: Fever Positive: Sore Throat, Nasal Discharge Negative: Chest Pain Negative: Shortness Of Breath Positive: Other - L knee pain, intermittent calf pain; NEGATIVE: calf tenderness , hip pain, ankle pain Neurological: Negative Psychological: Normal All Other Systems Reviewed And Are Negative: Yes Physical Exam Triage Information Reviewed: Yes Vital Signs On Initial Exam: Initial Vitals Temp Pulse Resp BP Pulse Ox 97.1 F 67 20 128/80 100 03/15/17 02:08 03/15/17 02:08 03/15/17 02:08 03/15/17 02:08 03/15/17 02:08 Vital Signs Reviewed: Yes Appearance: Positive: Well-Appearing, Well-Nourished, Pain Distress Skin: Positive: Warm, Skin Color Reflects Adequate Perfusion, Dry Head/Face: Positive: Normal Head/Face Inspection Eyes: Positive: Conjunctiva Clear ENT: Positive: Normal ENT inspection Neck: Positive: Supple Respiratory/Lung Sounds: Positive: Clear to Auscultation, Breath Sounds Present , Other - No respiratory distress Cardiovascular: Positive: RRR, Pulses are Symmetrical in both Upper and Lower Extremities, Other - Brisk cap refill. Negative: Murmur Abdomen Description: Positive: Nontender, Soft Bowel Sounds: Positive: Present Musculoskeletal: Positive: Strength/ROM Intact, Pain @ - left lateral knee, Other - She has full flexion of the left knee. Ligaments are stable. Patella is not ballotable. There is some crepitus. 1+ swelling. FROM. The pain radiates up the mid thigh. There is no calf tenderness. She recently has been on anticoagulants. Neurological: Positive: Sensory/Motor Intact, Alert, Oriented to Person Place, Time, Facial Symmetry, Speech Normal Psychiatric: Positive: Normal Diagnostics - Vital Signs Vital Signs Temp Pulse Resp BP Pulse Ox 03/15/17 08:34 63 98 03/15/17 08:32 117/67 03/15/17 06:25 97.6 F 63 18 99/69 100 03/15/17 02:08 97.1 F 67 20 128/80 100 - Laboratory Lab Results: Lab Results 03/15/17 03/15/17 03/15/17 Range/Units 06:34 06:41 06:41 WBC 7.5 (3.5-10.8) 10^3/ul RBC 4.44 (4.0-5.4) 10^6/ul Hgb 13.6 (12.0-16.0) g/dl Hct 40 (35-47) % MCV 90 (80-97) fL MCH 31 (27-31) pg MCHC 34 (31-36) g/dl RDW 14 (10.5-15) % Plt Count 280 (150-450) 10^3/ul MPV 7 L (7.4-10.4) um3 Neut % (Auto) 51.4 (38-83) % Lymph % (Auto) 37.0 (25-47) % Quay % (Auto) 9.0 (1-9) % Eos % (Auto) 2.1 (0-6) % Baso % (Auto) 0.5 (0-2) % Absolute Neuts (auto) 3.9 (1.5-7.7) 10^3/ul Absolute Lymphs (auto) 2.8 (1.0-4.8) 10^3/ul Absolute Monos (auto) 0.7 (0-0.8) 10^3/ul Absolute Eos (auto) 0.2 (0-0.6) 10^3/ul Absolute Basos (auto) 0 (0-0.2) 10^3/ul Absolute Nucleated RBC 0.01 10^3/ul Nucleated RBC % 0.1 INR (Anticoag Therapy) (0.89-1.11) D-Dimer, Quantitative (Less Than 230) ng/mL Sodium 138 (133-145) mmol/L Potassium 4.2 (3.5-5.0) mmol/L Chloride 109 (101-111) mmol/L Carbon Dioxide 24 (22-32) mmol/L Anion Gap 5 (2-11) mmol/L BUN 10 (6-24) mg/dL Creatinine 0.85 (0.51-0.95) mg/dL Est GFR ( Amer) 96.8 (>60) Est GFR (Non-Af Amer) 75.3 (>60) BUN/Creatinine Ratio 11.8 (8-20) Glucose 74 (70-100) mg/dL Calcium 8.6 (8.6-10.3) mg/dL Total Bilirubin 0.30 (0.2-1.0) mg/dL AST 12 L (13-39) U/L ALT 10 (7-52) U/L Alkaline Phosphatase 52 (34-104) U/L C-Reactive Protein 1.48 (< 5.00) mg/L Total Protein 6.8 (6.4-8.9) g/dL Albumin 3.7 (3.2-5.2) g/dL Globulin 3.1 (2-4) g/dL Albumin/Globulin Ratio 1.2 (1-3) Beta HCG, Quant < 0.60 mIU/mL Group A Strep Rapid Negative (Negative) 03/15/17 Range/Units 06:41 WBC (3.5-10.8) 10^3/ul RBC (4.0-5.4) 10^6/ul Hgb (12.0-16.0) g/dl Hct (35-47) % MCV (80-97) fL MCH (27-31) pg MCHC (31-36) g/dl RDW (10.5-15) % Plt Count (150-450) 10^3/ul MPV (7.4-10.4) um3 Neut % (Auto) (38-83) % Lymph % (Auto) (25-47) % Quay % (Auto) (1-9) % Eos % (Auto) (0-6) % Baso % (Auto) (0-2) % Absolute Neuts (auto) (1.5-7.7) 10^3/ul Absolute Lymphs (auto) (1.0-4.8) 10^3/ul Absolute Monos (auto) (0-0.8) 10^3/ul Absolute Eos (auto) (0-0.6) 10^3/ul Absolute Basos (auto) (0-0.2) 10^3/ul Absolute Nucleated RBC 10^3/ul Nucleated RBC % INR (Anticoag Therapy) 0.91 (0.89-1.11) D-Dimer, Quantitative < 200 (Less Than 230) ng/mL Sodium (133-145) mmol/L Potassium (3.5-5.0) mmol/L Chloride (101-111) mmol/L Carbon Dioxide (22-32) mmol/L Anion Gap (2-11) mmol/L BUN (6-24) mg/dL Creatinine (0.51-0.95) mg/dL Est GFR ( Amer) (>60) Est GFR (Non-Af Amer) (>60) BUN/Creatinine Ratio (8-20) Glucose (70-100) mg/dL Calcium (8.6-10.3) mg/dL Total Bilirubin (0.2-1.0) mg/dL AST (13-39) U/L ALT (7-52) U/L Alkaline Phosphatase (34-104) U/L C-Reactive Protein (< 5.00) mg/L Total Protein (6.4-8.9) g/dL Albumin (3.2-5.2) g/dL Globulin (2-4) g/dL Albumin/Globulin Ratio (1-3) Beta HCG, Quant mIU/mL Group A Strep Rapid (Negative) Result Diagrams: 03/15/17 06:41 03/15/17 06:41 Lab Statement: Any lab studies that have been ordered have been reviewed, and results considered in the medical decision making process. - Radiology XR Knee Xray Interpretation: No Acute Changes - no acute osseous injury. ED physician has reviewed this report and agrees. Radiology Interpretation Completed By: Radiologist - Additional Comments Diagnostic Additional Comments: US LLE. Interpreted by radiologist. Impression: no LLE DVT. ED physician has reviewed this report and agrees. Lower Extremity Course/Dx - Course Course Of Treatment: Blood pressure noted. Patient's medication levels reviewed this visit. Assessment/Plan: The pt is a 36 y/o M presenting to the ED c/o L knee pain that began two months ago but suddenly worsened significantly this AM at 01:30 when she alon from the toilet. The pain is located on her lateral left knee and it radiates up the middle of her thigh. She says that she currently has a DVT in her right leg but is not currently on anticoagulants per her physician because there is "flow up and down the leg". High blood pressure noted. Patients medications reviewed this visit. In the ED course the patient was given [place]. Bloodwork was obtained with results earlier in this report. D-dimer less than 200. UA was obtained with results earlier in this report. XR Knee shows no acute osseous injury. US LLE reveals no LLE DVT. ED physician has reviewed this report and agrees. Pt's rapid strep test is neg. Patient will be discharged home with follow up by PCP and orthopedics. Pt is agreeable with this plan. - Diagnoses Differential Diagnosis/HQI/PQRI: Positive: Contusion, DVT, Fracture (Closed), Sprain, Strain Provider Diagnoses: Left knee sprain, Pharyngitis, acute Discharge - Discharge Plan Condition: Stable Disposition: HOME Prescriptions: HYDROcodone/ACETAMIN 5-325 MG* [[place] 5-325 TAB*] 1 tab PO Q6H PRN #20 tab MDD 4 PRN Reason: Pain Patient Education Materials: Hydrocodone/Acetaminophen (By mouth), Knee Immobilizer (ED) Referrals: Ave Daniel MD [Medical Doctor] - 2 Days Jes Hernandez MD [Primary Care Provider] - Additional Instructions: Follow up with amauri Allen, in 2 days. Please return to the ED if you experience new or worsening symptoms. The documentation as recorded by the Nadira jiménez Thomas accurately reflects the service I personally performed and the decisions made by , Marquita Mckeon MD.
== END 2017-03-15 09:05 | disposition home or self-care (01) ==
LOC: ED 02:07
DX: S83.92XA Sprain of unspecified site of left knee, initial encounter (principal); J02.9 Acute pharyngitis, unspecified; Z86.718 Personal history of other venous thrombosis and embolism; F17.210 Nicotine dependence, cigarettes, uncomplicated; D68.59 Other primary thrombophilia
CPT/HCPCS: 36415; 80053; 84702; 85025; 85379; 85610; 86140; 87651; 99283

== ENCOUNTER 2018-02-15 09:44 | Emergency (ER) | payer OTHER ==
[2018-02-15 12:26] VITALS: BP 127/76
--- NOTE | 2018-02-15 13:28 | ED ---
Lower Extremity - HPI Summary HPI Summary: Patient is a 37-year-old female with history of protein C deficiency and right popliteal DVT presenting to the ED with complaint of suprapatellar swelling and medial ankle swelling which she states she was rolling over when she felt as though her "tendon popped." She states she then awoke this morning with some swelling to the knee. She remains ambulatory. Denies any numbness or tingling. Denies any swelling to the calf, palpable cords, erythema or pain. She denies any anticoagulation medications. - History of Current Complaint Chief Complaint: EDExtremityLower Stated Complaint: RT LEG INJURY Time Seen by Provider: 02/15/18 10:13 Hx Obtained From: Patient Hx Last Menstrual Period: 09/05/16 Mechanism Of Injury: Twisted Onset of Pain: Hours Onset/Duration: Hours Severity Initially: Moderate Severity Currently: Moderate Pain Intensity: 2 Pain Scale Used: 0-10 Numeric Timing: Constant Location: Is Discrete @ - right suprapatellar area of the R knee Associated Signs And Symptoms: Positive: Swelling. Negative: Redness, Bruising Aggravating Factor(s): Standing, Ambulation Alleviating Factor(s): Rest Able to Bear Weight: Yes - Risk Factors Gout Risk Factors: Negative DVT Risk Factors: Other: - Protein C deficiency and previous DVT - Allergies/Home Medications Allergies/Adverse Reactions: Allergies Allergy/AdvReac Type Severity Reaction Status Date / Time No Known Allergies Allergy Verified 02/15/18 10:08 PMH/Surg Hx/FS Hx/Imm Hx Previously Healthy: Yes Endocrine/Hematology History: Reports: Other Endocrine/Hematological Disorders - protein C def Denies: Hx Anticoagulant Therapy Cardiovascular History: Reports: Hx Deep Vein Thrombosis Musculoskeletal History: Reports: Other Musculoskeletal History - Rt calf tear in 2013 Neurological History: Denies: Hx Peripheral Neuropathy, Hx Spinal Cord Injury - Surgical History Surgery Procedure, Year, and Place: tubal clamps january 2009 - Immunization History Hx Pertussis Vaccination: No Immunizations Up to Date: Yes Infectious Disease History: No Infectious Disease History: Denies: History Other Infectious Disease, Traveled Outside the [place] in Last 30 Days - Family History Known Family History: Positive: Unknown, Diabetes - Father on dialysis secondary to DM, Other - migraines - Social History Occupation: Employed Full-time Lives: With Family Alcohol Use: Occasionally Hx Substance Use: No Substance Use Type: Reports: None Hx Tobacco Use: Yes Smoking Status (MU): Heavy Every Day Tobacco Smoker Type: Cigarettes Amount Used/How Often: half pack per day Review of Systems Constitutional: Negative Negative: Fever, Chills, Fatigue, Skin Diaphoresis Negative: Palpitations, Chest Pain Negative: Shortness Of Breath, Cough Genitourinary: Negative Positive: no symptoms reported, see HPI Positive: Arthralgia - right knee suprapatellar swelling Skin: Negative Neurological: Negative All Other Systems Reviewed And Are Negative: Yes Physical Exam Triage Information Reviewed: Yes Vital Signs On Initial Exam: Initial Vitals Temp Pulse Resp BP Pulse Ox 97.5 F 62 15 138/71 100 02/15/18 10:04 02/15/18 10:04 02/15/18 10:04 02/15/18 10:04 02/15/18 10:04 Vital Signs Reviewed: Yes Appearance: Positive: Well-Appearing, Well-Nourished Skin: Positive: Warm, Skin Color Reflects Adequate Perfusion Head/Face: Positive: Normal Head/Face Inspection Eyes: Positive: EOMI, SHERRI, Conjunctiva Clear Neck: Positive: Supple, No Lymphadenopathy Respiratory/Lung Sounds: Positive: Clear to Auscultation, Breath Sounds Present Cardiovascular: Positive: Normal, RRR, Pulses are Symmetrical in both Upper and Lower Extremities Musculoskeletal: Positive: Pain @ - suprapatellar knee swelling with medial R foot swelling (mild) Neurological: Positive: Alert, Oriented to Person Place, Time, Speech Normal Psychiatric: Positive: Normal, Affect/Mood Appropriate AVPU Assessment: Alert Diagnostics - Vital Signs Vital Signs Temp Pulse Resp BP Pulse Ox 02/15/18 12:25 98.4 F 58 18 127/76 99 02/15/18 10:29 98.4 F 72 16 159/87 02/15/18 10:04 97.5 F 62 15 138/71 100 - Laboratory Lab Statement: Any lab studies that have been ordered have been reviewed, and results considered in the medical decision making process. Lower Extremity Course/Dx - Course Course Of Treatment: Patient is evaluated for some swelling to the right medial foot as well as the suprapatellar knee. She states she injured the knee upon twisting at last evening and awoke this morning with swelling. She denies any issues with range of motion, however she endorses pain with flexion and extension of the knee. History of protein C deficiency as well as DVT. Would like to rule out DVT, however ultrasound is not available today. Patient is to have strict follow-up and go to her PCP tomorrow. However, no erythema, no swelling, no palpable cord, Homans sign negative. No obvious other signs of DVT are present. However, patient has risk factors related to a DVT and with like to rule this out as an outpatient basis. She will take ibuprofen 6 her milligrams 3 times daily in the meantime, elevate the leg, ice to the knee. She states she remains ambulatory, so crutches were not given. Allen wrapped the knee with good relief. Ibuprofen given in the ED. Likely this is suprapatellar strain which is causing secondary edema to the foot. - Diagnoses Differential Diagnosis/HQI/PQRI: Positive: Sprain, Strain Provider Diagnoses: Knee pain, acute Discharge - Sign-Out/Discharge Documenting (check all that apply): Patient Departure - Discharge Plan Condition: Stable Disposition: HOME Patient Education Materials: Muscle Strain (ED) Forms: *Work Release Referrals: Liam Bacon MD [Medical Doctor] - Jes Hernandez MD [Primary Care Provider] - Additional Instructions: Please follow up with her PCP regarding a DVT study Ice Elevation Keep the knee Allen wrapped Ibuprofen 600 mg 3 times daily If symptoms become worse, return to the ED, follow up with her PCP or call the orthopedic physician - Billing Disposition and Condition Condition: STABLE Disposition: Home
== END 2018-02-15 12:25 | disposition home or self-care (01) ==
LOC: ED 09:44
DX: M25.561 Pain in right knee (principal); F17.210 Nicotine dependence, cigarettes, uncomplicated; R60.9 Edema, unspecified
CPT/HCPCS: 99281

== ENCOUNTER 2018-09-05 10:07 | Emergency (ER) | payer OTHER ==
[2018-09-05] MEDS ORDERED: Ketorolac INJ* 30 MG/ML 1 ML VIAL IV ONE (11:45)
[2018-09-05] MEDS ORDERED: Metoclopramide IV* 5 MG/ML 2 ML VIAL IV ONE (11:45)
[2018-09-05] MEDS ORDERED: NS 0.9% 1000 ML** 1,000 ML IV ONE (11:45)
[2018-09-05] MEDS ORDERED: diPHENhydraMINE IV* 50 MG/ML 1 ml VIAL (BENADRYL) IV ONE (11:45)
[2018-09-05 12:10] LABS: ABS Basophils 0.1 10^3/ul (0-0.2); ABS Eosinophils 0.1 10^3/ul (0-0.6); ABS Lymphocytes 2.9 10^3/ul (1.0-4.8); ABS Monocytes 0.5 10^3/ul (0-0.8); ABS Neutrophils 5.1 10^3/ul (1.5-7.7); ABS Nucleated RBC 0 10^3/ul; Eosinophil % 1.2 %; Hematocrit 45 % (33-41); Hemoglobin 14.7 g/dL (12.0-16.0); Lymphocyte % 33.6 %; Mean Corpuscular HGB Conc 33 g/dL (31-36); Mean Corpuscular Hemoglobin 30 pg (27-31); Mean Corpuscular Volume 91 fL (80-97); Mean Platelet Volume 7.5 fL (7.4-10.4); Nucleated Red Blood Cells % 0.1; Platelet Count 271 10^3/uL (150-450); Red Blood Count 4.91 10^6 /uL (3.70-4.87); Red Cell Distribution Width 14 % (10.5-15); White Blood Count 8.7 10^3/uL (3.5-10.8)
[2018-09-05 12:18] LABS: Albumin/Globulin Ratio 1.4 (1-3); BUN/Creatinine Ratio 11.5 (8-20); Calcium 9.3 mg/dL (8.6-10.3); EGFR African American 87.7 (>60); EGFR Non-African American 72.5 (>60); Globulin 2.9 g/dL (2-4); Potassium 4.5 mmol/L (3.5-5.0); Total Bilirubin 0.4 mg/dL (0.2-1.0); Total Protein 6.9 g/dL (6.4-8.9)
--- NOTE | 2018-09-05 12:34 | ED ---
Headache - HPI Summary HPI Summary: Patient is a 38-year-old female patient presenting to the ED with migraine 2-3 days. She states she has been taking ibuprofen for pain control. She does not see a neurologist and does not take any other medication for the migraines. Patient does endorse chest tightness x 1 day last week, but does not have this currently. Hx of protein C deficiency. She denies any chest pain or shortness of breath at this time. Her headache is currently rated an 8/10. This is aching and located behind the eyes. She has had this in the past approximately 2 years ago and was treated here at [facility]. She denies any nausea. Endorses photophobia. Denies any neck pain or stiffness. - History Of Current Complaint Chief Complaint: EDHeadache Stated Complaint: "CHEST PAIN COMES AND GOES, MIGRAINE" PER PT Time Seen by Provider: 09/05/18 10:44 Hx Obtained From: Patient Hx Last Menstrual Period: 09/05/16 Onset/Duration: Sudden Onset Initially Headache Was: Initial Pain Scale(0-10)= - 8 Currently Pain Is: Current Pain Scale(0-10)= - 8 Timing: Constant Character: Throbbing Location of Headache: Frontal Radiates to: behind the eyes Aggravating Factor: Position Change, Bright Lights Allevating Factors: Nothing Associated Signs And Symptoms: Negative - Risk Factors SAH Risk Factors: Negative Meningitis Risk Factors: Negative SDH Risk Factors: Negative Temporal Arteritis Risk Factors: Negative - Allergies/Home Medications Allergies/Adverse Reactions: Allergies Allergy/AdvReac Type Severity Reaction Status Date / Time No Known Allergies Allergy Verified 02/15/18 10:08 PMH/Surg Hx/FS Hx/Imm Hx Previously Healthy: Yes Endocrine/Hematology History: Reports: Other Endocrine/Hematological Disorders - protein C def Denies: Hx Anticoagulant Therapy Cardiovascular History: Reports: Hx Deep Vein Thrombosis Musculoskeletal History: Reports: Other Musculoskeletal History - Rt calf tear in 2013 Neurological History: Denies: Hx Peripheral Neuropathy, Hx Spinal Cord Injury - Surgical History Surgery Procedure, Year, and Place: tubal clamps january 2009 - Immunization History Hx Pertussis Vaccination: No Immunizations Up to Date: Yes Infectious Disease History: No Infectious Disease History: Denies: History Other Infectious Disease, Traveled Outside the [place] in Last 30 Days - Family History Known Family History: Positive: Unknown, Diabetes - Father on dialysis secondary to DM, Other - migraines - Social History Occupation: Unemployed Lives: With Family Alcohol Use: Occasionally Hx Substance Use: No Substance Use Type: Reports: None Hx Tobacco Use: Yes Smoking Status (MU): Heavy Every Day Tobacco Smoker Type: Cigarettes Amount Used/How Often: half pack per day Review of Systems Constitutional: Negative Negative: Fever, Chills, Fatigue, Skin Diaphoresis Negative: Epistaxis, Dental Pain Negative: Palpitations, Chest Pain Genitourinary: Negative Positive: no symptoms reported, see HPI Negative: Arthralgia, Myalgia Positive: Headache Psychological: Normal All Other Systems Reviewed And Are Negative: Yes Physical Exam Triage Information Reviewed: Yes Vital Signs On Initial Exam: Initial Vitals Temp Pulse Resp BP Pulse Ox 98.7 F 81 17 139/82 100 09/05/18 10:10 09/05/18 10:10 09/05/18 10:10 09/05/18 10:10 09/05/18 10:10 Vital Signs Reviewed: Yes Appearance: Positive: Well-Appearing, Well-Nourished Skin: Positive: Skin Color Reflects Adequate Perfusion Head/Face: Positive: Normal Head/Face Inspection Eyes: Positive: EOMI, Conjunctiva Clear Neck: Positive: Supple, No Lymphadenopathy Respiratory/Lung Sounds: Positive: Clear to Auscultation, Breath Sounds Present Cardiovascular: Positive: RRR, Pulses are Symmetrical in both Upper and Lower Extremities. Negative: Leg Edema Left, Leg Edema Right Musculoskeletal: Positive: Normal, Strength/ROM Intact Neurological: Positive: Sensory/Motor Intact, Alert, Oriented to Person Place, Time, Normal Gait, Speech Normal Psychiatric: Positive: Normal, Affect/Mood Appropriate AVPU Assessment: Alert Diagnostics - Vital Signs Vital Signs Temp Pulse Resp BP Pulse Ox 09/05/18 11:54 57 18 133/76 98 09/05/18 10:10 98.7 F 81 17 139/82 100 - Laboratory Lab Results: Lab Results 09/05/18 09/05/18 09/05/18 Range/Units 11:53 11:53 11:53 WBC 8.7 (3.5-10.8) 10^3/uL RBC 4.91 H (3.70-4.87) 10^6 /uL Hgb 14.7 (12.0-16.0) g/dL Hct 45 H (33-41) % MCV 91 (80-97) fL MCH 30 (27-31) pg MCHC 33 (31-36) g/dL RDW 14 (10.5-15) % Plt Count 271 (150-450) 10^3/uL MPV 7.5 (7.4-10.4) fL Neut % (Auto) 58.3 % Lymph % (Auto) 33.6 % [place] % (Auto) 5.9 % Eos % (Auto) 1.2 % Baso % (Auto) 1.0 % Absolute Neuts (auto) 5.1 (1.5-7.7) 10^3/ul Absolute Lymphs (auto) 2.9 (1.0-4.8) 10^3/ul Absolute Monos (auto) 0.5 (0-0.8) 10^3/ul Absolute Eos (auto) 0.1 (0-0.6) 10^3/ul Absolute Basos (auto) 0.1 (0-0.2) 10^3/ul Absolute Nucleated RBC 0 10^3/ul Nucleated RBC % 0.1 ESR Pending Sodium 137 (135-145) mmol/L Potassium 4.5 (3.5-5.0) mmol/L Chloride 107 (101-111) mmol/L Carbon Dioxide 29 (22-32) mmol/L Anion Gap 1 L (2-11) mmol/L BUN 10 (6-24) mg/dL Creatinine 0.87 (0.51-0.95) mg/dL Est GFR ( Amer) 87.7 (>60) Est GFR (Non-Af Amer) 72.5 (>60) BUN/Creatinine Ratio 11.5 (8-20) Glucose 91 (70-100) mg/dL Lactic Acid 0.5 (0.5-2.0) mmol/L Calcium 9.3 (8.6-10.3) mg/dL Total Bilirubin 0.40 (0.2-1.0) mg/dL AST 10 L (13-39) U/L ALT 7 (7-52) U/L Alkaline Phosphatase 45 (34-104) U/L Total Protein 6.9 (6.4-8.9) g/dL Albumin 4.0 (3.2-5.2) g/dL Globulin 2.9 (2-4) g/dL Albumin/Globulin Ratio 1.4 (1-3) Result Diagrams: 09/05/18 11:53 09/05/18 11:53 Lab Statement: Any lab studies that have been ordered have been reviewed, and results considered in the medical decision making process. Headache Course/Dx - Course Course Of Treatment: During the patient's course of treatment, the patient is evaluated for migraine headache. She states she has had this in the past, however none currently. The migraine headache is been present 2-3 days. She did have one episode of chest tightness approximately 1 week ago, but this has spontaneously resolved. Denies any SOB. She does have a history of a protein C deficiency. She takes no medications for this, however has never had a DVT, PE or any other complications from this. Labs obtained which are all WNL including an ESR. She is given 1 L fluids, Toradol, Benadryl, Reglan. This all with good effect. Patient is requesting discharge home. I have given her Toradol, Reglan encouraged Benadryl [id number] for her symptoms. She'll continue to drink plenty of fluids. She will follow-up with her PCP if she has any continuing symptoms, otherwise she understands return to the ED for any worsening or changing symptoms. She states again this is not the worst headache of her life and endorses his pain an 8/10. I do not believe a CT brain is required at this time. - Diagnoses Differential Diagnosis/HQI/PQRI: Migraine Provider Diagnoses: Migraine headache Discharge - Sign-Out/Discharge Documenting (check all that apply): Patient Departure Patient Received Moderate/Deep Sedation with Procedure: No - Discharge Plan Condition: Stable Disposition: HOME Prescriptions: Ketorolac TAB * [Toradol TAB *] 10 mg PO Q6H #16 tab Metoclopramide TAB* [Reglan TAB*] 10 mg PO Q8H #12 tab Patient Education Materials: Migraine Headache (ED) Referrals: Jes Hernandez MD [Primary Care Provider] - Additional Instructions: Drink plenty of fluids Benadryl up to 25 mg 4 times daily as needed for migraine headache Reglan 10 mg up to 3 times daily Toradol up to 4 times daily for migraine headache Take all 3 of these medications at the first onset of a headache If he develop any worsening or changing symptoms, not well improved with these medications, return to the ED immediately - Billing Disposition and Condition Condition: STABLE Disposition: Home
[2018-09-05 14:08] VITALS: BP 93/65
[2018-09-05 17:57] LABS: Erythrocyte Sed Rate 3 mm/Hr (0-20)
== END 2018-09-05 14:09 | disposition home or self-care (01) ==
LOC: ED 10:07
DX: G43.909 Migraine, unspecified, not intractable, without status migrainosus (principal); R07.89 Other chest pain; D68.59 Other primary thrombophilia; F17.210 Nicotine dependence, cigarettes, uncomplicated
CPT/HCPCS: 36415; 80053; 83605; 85025; 85652; 93005; 96361; 96374; 96375; 99282; J1200; J1885; J2765

== ENCOUNTER → 2019-01-05 19:16 | Emergency (ER) | payer OTHER ==
--- NOTE | 2019-01-05 20:42 | ED ---
Lower Extremity - HPI Summary HPI Summary: 38-year-old male presents with left knee pain today. She was kneeling and developed the pain and swelling to the area. 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 She is currently on antibiotics for cellulitis that is resolving. She denies any fevers. No redness there. no calf pain. Does have a history of DVTs. denies any chest pressures or shortness of breath. no numbness or tingling. - History of Current Complaint Chief Complaint: EDExtremityLower Stated Complaint: I HAVE A HUGE THING ON MY KNEE CAP PER PT Time Seen by Provider: 01/05/19 19:55 Hx Last Menstrual Period: 09/05/16 Pain Intensity: 4 - Allergies/Home Medications Allergies/Adverse Reactions: Allergies Allergy/AdvReac Type Severity Reaction Status Date / Time No Known Allergies Allergy Verified 01/05/19 19:22 PMH/Surg Hx/FS Hx/Imm Hx Endocrine/Hematology History: Reports: Other Endocrine/Hematological Disorders - protein C def Denies: Hx Anticoagulant Therapy Cardiovascular History: Reports: Hx Deep Vein Thrombosis Musculoskeletal History: Reports: Other Musculoskeletal History - Rt calf tear in 2013 Neurological History: Denies: Hx Peripheral Neuropathy, Hx Spinal Cord Injury - Surgical History Surgery Procedure, Year, and Place: tubal clamps january 2009 Infectious Disease History: No Infectious Disease History: Denies: History Other Infectious Disease, Traveled Outside the [place] in Last 30 Days - Family History Known Family History: Positive: Unknown, Diabetes - Father on dialysis secondary to DM, Other - migraines - Social History Alcohol Use: Occasionally Hx Substance Use: No Substance Use Type: Reports: None Hx Tobacco Use: Yes Smoking Status (MU): Heavy Every Day Tobacco Smoker Type: Cigarettes Amount Used/How Often: half pack per day Review of Systems Negative: Fever Negative: Chest Pain Negative: Shortness Of Breath All Other Systems Reviewed And Are Negative: Yes Physical Exam Triage Information Reviewed: Yes Vital Signs On Initial Exam: Initial Vitals Temp Pulse Resp BP Pulse Ox 98.1 F 80 16 145/74 99 01/05/19 19:18 01/05/19 19:18 01/05/19 19:18 01/05/19 19:18 01/05/19 19:18 Vital Signs Reviewed: Yes Appearance: Positive: Well-Appearing Skin: Positive: Warm, Dry Head/Face: Positive: Normal Head/Face Inspection Eyes: Positive: Normal, Conjunctiva Clear ENT: Positive: Pharynx normal Respiratory/Lung Sounds: Positive: Clear to Auscultation, Breath Sounds Present Cardiovascular: Positive: Normal, RRR Musculoskeletal: Positive: Strength/ROM Intact - left knee, Other - tenderness and swelling in prepatellar region, no erythema, good pulses, nontender calf Neurological: Positive: Normal Psychiatric: Positive: Normal Diagnostics - Vital Signs Vital Signs Temp Pulse Resp BP Pulse Ox 01/05/19 19:18 98.1 F 80 16 145/74 99 - Laboratory Lab Statement: Any lab studies that have been ordered have been reviewed, and results considered in the medical decision making process. Lower Extremity Course/Dx - Course Course Of Treatment: 38-year-old male presents with left knee pain today. She was kneeling and developed the pain and swelling to the area. 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 She is currently on antibiotics for cellulitis that is resolving. She denies any fevers. No redness there. no calf pain. Does have a history of DVTs. denies any chest pressures or shortness of breath. no numbness or tingling. On exam has swelling and tenderness noted to prepatellar region. Full range of motion. X-ray normal. Appears most like a prepatellar bursitis and with history of being on knee likely is such. Told to ice and compress area. Told to limit time on knee. told follow up with ortho if no improvement. Patient understands agrees plan. - Diagnoses Differential Diagnosis/HQI/PQRI: Positive: Fracture (Closed), Sprain, Strain Provider Diagnoses: Left knee pain Discharge - Sign-Out/Discharge Documenting (check all that apply): Patient Departure Patient Received Moderate/Deep Sedation with Procedure: No - Discharge Plan Condition: Good Disposition: HOME Patient Education Materials: Knee Bursitis (ED) Referrals: Edgardo Mak MD [Medical Doctor] - Jes Hernandez MD [Primary Care Provider] - Additional Instructions: symptoms most likely due to bursitis try to stay off knees Ice, elevate, Tylenol every 6 hours for pain Follow up with ortho if no improvement Return to ED if develop fever, redness or any new or worsening symptoms - Billing Disposition and Condition Condition: GOOD Disposition: Home
[2019-01-05 20:51] VITALS: BP 139/88
== END | disposition home or self-care (01) ==
LOC: ED 19:16
DX: M25.562 Pain in left knee (principal); F17.210 Nicotine dependence, cigarettes, uncomplicated
CPT/HCPCS: 99282